=== PATIENT | female | born 1980 | race African-American/Black ===

== ENCOUNTER 2017-10-27 17:19 | Emergency (ER) | payer MEDICAID ==
[~2017-10-27] VITALS: Ht 165.1 cm; Wt 75.0 kg
[2017-10-27] MEDS ORDERED: ONDANSETRON HCL 4MG/2ML VIAL IV STA (21:10)
[2017-10-27] MEDS ORDERED: SODIUM CHLORIDE 0.9% 1,000 ML IV ONE (21:10)
[2017-10-27] MEDS ORDERED: KETOROLAC 30MG/ML VIAL IV STA (21:10)
[2017-10-27 22:07] LABS: BASOPHILS % 0.6 % (0.0-2.0); EOSINOPHILS % 0.2 % (0.0-5.0); HEMOGLOBIN. 13.2 g/dL (12.0-16.0); LYMPHOCYTES % 21.2 % (20.0-50.0); MEAN CORPUSCULAR HEMOGLOBIN 26.2 pg (28.0-32.0); MEAN CORPUSCULAR VOLUME 81.4 fL (81.0-99.0); MEAN PLATELET VOLUME 8.7 fl (7.4-10.4); MONOCYTES % 6.9 % (2.0-8.0); NEUTROPHILS % 71.1 % (40.0-76.0); PLATELET 326 x1000/uL (130-400); RED BLOOD CELL COUNT 5.04 mill/uL (4.2-5.4); RED CELL DISTRIBUTION WIDTH 15.4 % (11.6-14.6)
[2017-10-27 22:15] LABS: HCG SCREEN NEGATIVE
[2017-10-27 22:16] LABS: CHLORIDE 102 mEq/L (98-107)
[2017-10-27 23:52] LABS: CLARITY URINE TURBID (CLEAR); COLOR URINE DARK YELLOW (YELLOW); KETONES URINE TRACE (NEGATIVE); LEUKOCYTE ESTERASE URINE TRACE (NEGATIVE); NITRITE URINE NEGATIVE (NEGATIVE); OCCULT BLOOD URINE NEGATIVE (NEGATIVE); PH URINE 5.5 (4.5-8.0); PROTEIN URINE 1+ (NEGATIVE); SPECIFIC GRAVITY URINE 1.037 (1.005-1.030)
[2017-10-28 02:00] VITALS: BP 120/68
== END 2017-10-28 02:04 | disposition home or self-care (01) ==
LOC: ER 18:00
DX: K85.90 Acute pancreatitis without necrosis or infection, unspecified (principal); J45.909 Unspecified asthma, uncomplicated; I11.0 Hypertensive heart disease with heart failure
CPT/HCPCS: 36415; 71045; 76705; 80053; 81001; 83690; 84703; 85025; 87804; 96361; 96374; 96375; 99285; J1885; J2405; J7030; Z7610